=== PATIENT | female | born 1995 | race Caucasian/White ===

== ENCOUNTER 2017-10-24 10:29 | Inpatient (IN) | payer OTHER ==
[~2017-10-24] VITALS: Ht 172.7 cm; Wt 90.0 kg
[~2017-10-24 10:29] MED LIST: VITAFOL-OB+DHA1 EACH PO
--- NOTE | 2017-10-24 13:58 | PR ---
[facility] [address] [facility] [place], [place] [address] Signed Progress Notes IP Datetime Report Generated by CPN: 10/24/2017 13:58 PROGRESS NOTES: [id number] Impression: Normal progression of labor Procedures: Artificial ROM Plan: Continue present management; Anticipate Vaginal Delivery VITAL SIGNS: [id number] Vital Signs: Reviewed; Within Normal Limits EXAM: [id number] Dilatation: 3.5 Effacement: 50 Station: -2 Uterine Contractions: every 2-4 minutes MEMBRANES: [id number] Membrane Status: Ruptured Amniotic Fluid Color: Clear ROM Note: AROM without difficulty Comments: Patient tolerating contractions well, planning on no Epidural at this time. BP stable Continue monitoring Fetus A: [id number] FHR Baseline: 140 Variability: Moderate 6-25bpm Accelerations: 15X15 Presentation: Vertex Fetus B: [id number] Signing Physician: Thalia Toscano MD CC: *Electronically Signed* 10/24/17 1358 THALIA TOSCANO MD PATIENT NAME: CHRIS REED PROGRESS NOTE DATE OF : [birth year] PHYSICIAN: THALIA TOSCANO MD RPT #: [id number] REPORT IS CONFIDENTIAL AND NOT TO BE RELEASED WITHOUT AUTHORIZATION
--- NOTE | 2017-10-24 16:13 | PR ---
[facility] [address] [facility] [place], [place] [address] Signed Progress Notes IP Datetime Report Generated by CPN: 10/24/2017 16:13 PROGRESS NOTES: [id number] Impression: Normal progression of labor Procedures: Artificial ROM Plan: Continue present management; Anticipate Vaginal Delivery VITAL SIGNS: [id number] Vital Signs: Reviewed; Within Normal Limits EXAM: [id number] Dilatation: 8.0 Effacement: 90 Station: 1 Uterine Contractions: every 2 minutes MEMBRANES: [id number] Membrane Status: Ruptured Amniotic Fluid Color: Clear ROM Note: AROM without difficulty Comments: Tolerating contracitons well, good progress. Fetus A: [id number] FHR Baseline: 125 Variability: Moderate 6-25bpm Accelerations: 15X15 Presentation: Vertex Fetus B: [id number] Signing Physician: Thalia Toscano MD CC: *Electronically Signed* 10/24/17 1613 THALIA TOSCANO MD PATIENT NAME: CHRIS REED PROGRESS NOTE DATE OF : [birth year] PHYSICIAN: THALIA TOSCANO MD RPT #: [id number] REPORT IS CONFIDENTIAL AND NOT TO BE RELEASED WITHOUT AUTHORIZATION
--- NOTE | 2017-10-25 11:12 | PR ---
[facility] [address] [facility] [place] [address] Signed PP Progress Notes Datetime Report Generated by CPN: 10/25/2017 11:12 SUBJECTIVE: [id number] Pain: Within normal limits Nausea/Vomiting: Denies Vital Signs: [id number] Vital Signs: Reviewed; Within Normal Limits Notable Details: PP Hgb/Hct = 11.2/31.6 EXAM: [id number] Abdomen/Uterus: Normal Lochia: Normal Extremities: Normal IMPRESSION/PLAN/PROCEDURES: [id number] Progress Notes: Doing well without complaint. Signing Physician: Thalia Toscano MD CC: *Electronically Signed* 10/25/17 1112 THALIA TOSCANO MD PATIENT NAME: CHRIS REED PROGRESS NOTE DATE OF : [birth year] PHYSICIAN: THALIA TOSCANO MD RPT #: [id number] REPORT IS CONFIDENTIAL AND NOT TO BE RELEASED WITHOUT AUTHORIZATION
--- NOTE | 2017-10-26 10:50 | PR ---
[facility] [address] [facility] [place] [address] Signed PP Progress Notes Datetime Report Generated by CPN: 10/26/2017 10:50 SUBJECTIVE: [id number] Pain: Within normal limits Nausea/Vomiting: Denies Vital Signs: [id number] Vital Signs: Reviewed; Within Normal Limits Notable Details: PP Hgb/Hct = 11.2/31.6 EXAM: [id number] Abdomen/Uterus: Normal Lochia: Normal Extremities: Normal IMPRESSION/PLAN/PROCEDURES: [id number] Impression: Normal progression Plan: Discharge Procedures: None Progress Notes: Doing well without complaint. Ready to go home.l Signing Physician: Thalia Toscano MD CC: *Electronically Signed* 10/26/17 1050 THALIA TOSCANO MD PATIENT NAME: CHRIS REED PROGRESS NOTE DATE OF : [birth year] PHYSICIAN: THALIA TOSCANO MD RPT #: [id number] REPORT IS CONFIDENTIAL AND NOT TO BE RELEASED WITHOUT AUTHORIZATION
== END 2017-10-26 11:16 | disposition home or self-care (01) | DRG 775 ==
LOC: FBC 10:29
PROVIDERS: ADMIT General Practice
PROC: 10E0XZZ Delivery of Products of Conception, External Approach (ICD-10-PCS; principal; 2017-10-24)
PROC: 0KQM0ZZ Repair Perineum Muscle, Open Approach (ICD-10-PCS; principal; 2017-10-24)
PROC: 10907ZC Drainage of Amniotic Fluid, Therapeutic from Products of Conception, Via Natural or Artificial Opening (ICD-10-PCS; principal; 2017-10-24)
PROC: 3E033VJ Introduction of Other Hormone into Peripheral Vein, Percutaneous Approach (ICD-10-PCS; principal; 2017-10-24)
DX: O14.04 Mild to moderate pre-eclampsia, complicating childbirth (principal); O13.4 Gestational [pregnancy-induced] hypertension without significant proteinuria, complicating childbirth; Z3A.39 39 weeks gestation of pregnancy; Z37.0 Single live birth; O70.1 Second degree perineal laceration during delivery
CPT/HCPCS: 36415; 82565; 84450; 84520; 84550; 85025; 85027; J2590

== ENCOUNTER 2020-05-20 11:51 | Emergency (ER) | payer BC ==
[~2020-05-20] VITALS: Ht 172.7 cm; Wt 86.2 kg
--- NOTE | 2020-05-20 22:14 | EKG ---
[facility] [address] [facility] [place], [place] [address] Signed Sinus tachycardia Right axis deviation Cannot rule out Inferior infarct , age undetermined Abnormal ECG Confirmed by JS SHETH MD ([id number]) on 05/20/2020 10:13:50 PM Electronically Signed By: JS SHETH MD 05/20/20 2214 PATIENT NAME: CHRIS KLEIN Electrocardiogram DATE OF : [birth year] PHYSICIAN: JS SHETH MD REPORT #: [id number] REPORT IS CONFIDENTIAL AND NOT TO BE RELEASED WITHOUT AUTHORIZATION
== END 2020-05-20 17:07 | disposition home or self-care (01) ==
LOC: ED 11:51
DX: O99.89 Other specified diseases and conditions complicating pregnancy, childbirth and the puerperium (principal); R07.2 Precordial pain; O13.1 Gestational [pregnancy-induced] hypertension without significant proteinuria, first trimester; Z88.1 Allergy status to other antibiotic agents; Z3A.14 14 weeks gestation of pregnancy
CPT/HCPCS: 71046; 71260; 80053; 83735; 84484; 85025; 85379; 93005; 93010; 99285-25; Q9967

== ENCOUNTER 2020-11-08 00:04 | Inpatient (IN) | payer BC ==
--- NOTE | 2020-11-08 00:40 | NUR ---
[facility] RAPID COVID TEST DONE PER DR ORDER. COVID TEST COLLECTED FROM BOTH NARES. LEFT NARE HAD BLOCKAGE. RIGHT NARE HAD GOOD SAMPLE. PT TOLERATED WELL.
[2020-11-08] MEDS ORDERED: NIFEDIPINE ER30 M1 PO (01:09)
--- NOTE | 2020-11-08 10:11 | PR ---
[facility] [address] [facility] [place], [place] [address] Signed Progress Notes IP Datetime Report Generated by CPN: 11/08/2020 10:11 PROGRESS NOTES: [id number] Impression: Normal Progression of Labor Procedures: Artificial ROM Plan: Continue Present Management; Anticipate Vaginal Delivery VITAL SIGNS: [id number] Vital Signs: Reviewed; Within Normal Limits VS Notable Details: BP 130s-140s/70s-90s since receiving procardia EXAM: [id number] Dilatation: 3.0 Effacement: 50 Station: -2 Contractions: every 2-4 minutes MEMBRANES: [id number] Membranes Status: Ruptured Comments: Tolerating contractions well, will contyinue monitoring. FETUS A: [id number] FHR Baseline: 150 Variability: Moderate 6-25bpm Accelerations: 15X15 Decelerations: None FHR Category: Category I Presentation: Vertex FETUS B: [id number] Signing Physician: Thalia Toscano MD Copies: ~ *Electronically Signed* 11/08/20 1011 THALIA TOSCANO MD PATIENT NAME: CHRIS KLEIN PROGRESS NOTE DATE OF : [birth year] PHYSICIAN: THALIA TOSCANO MD RPT #: [id number] REPORT IS CONFIDENTIAL AND NOT TO BE RELEASED WITHOUT AUTHORIZATION
--- NOTE | 2020-11-09 11:24 | PR ---
[facility] [address] [facility] [place] [address] Signed PP Progress Notes Datetime Report Generated by CPN: 11/09/2020 11:24 SUBJECTIVE: [id number] Pain: Within Normal Limits Nausea/Vomiting: Denies Vital Signs: [id number] Vital Signs: Reviewed; Within Normal Limits Notable Details: PP Hgb/Hct = 10.3/31.7 EXAM: Ongoing Abdomen/Uterus: Normal Lochia: Normal Extremities: Normal IMPRESSION/PLAN/PROCEDURES: [id number] Impression: Normal Progression Plan: Discharge Procedures: None Progress Notes: Doing well, without complaint, wants to go home. Signing Physician: Thalia Toscano MD Copies: ~ *Electronically Signed* 11/09/20 1124 THALIA TOSCANO MD PATIENT NAME: CHRIS KLEIN PROGRESS NOTE DATE OF : [birth year] PHYSICIAN: THALIA TOSCANO MD RPT #: [id number] REPORT IS CONFIDENTIAL AND NOT TO BE RELEASED WITHOUT AUTHORIZATION
== END 2020-11-09 14:45 | disposition home or self-care (01) | DRG 807 ==
LOC: FBC 00:04
PROVIDERS: ADMIT General Practice; ATTEND General Practice
PROC: 10E0XZZ Delivery of Products of Conception, External Approach (ICD-10-PCS; principal; 2020-11-08)
PROC: 0UQMXZZ Repair Vulva, External Approach (ICD-10-PCS; 2020-11-08)
PROC: 10907ZC Drainage of Amniotic Fluid, Therapeutic from Products of Conception, Via Natural or Artificial Opening (ICD-10-PCS; 2020-11-08)
PROC: 3E0P7VZ Introduction of Hormone into Female Reproductive, Via Natural or Artificial Opening (ICD-10-PCS; 2020-11-08)
DX: O13.4 Gestational [pregnancy-induced] hypertension without significant proteinuria, complicating childbirth (principal); Z37.0 Single live birth; Z3A.38 38 weeks gestation of pregnancy; O99.344 Other mental disorders complicating childbirth; F41.9 Anxiety disorder, unspecified; O69.81X0 Labor and delivery complicated by cord around neck, without compression, not applicable or unspecified; O71.82 Other specified trauma to perineum and vulva; Z88.1 Allergy status to other antibiotic agents; Z79.82 Long term (current) use of aspirin
CPT/HCPCS: 36415; 85027; A9270; C9803; U0003